=== PATIENT | female | born 1985 | race Hispanic/Latino ===

== ENCOUNTER 2018-04-26 08:13 | Emergency (ER) | payer SELFPAY ==
[2018-04-26 08:26] VITALS: BP 115/76
[2018-04-26 09:04] LABS: Basophils # (Auto) 0.1 K/mm3 (0.0-0.1); Basophils % (Auto) 0.9 % (0.0-1.8); Eosinophils # (Auto) 0.2 K/mm3 (0.0-0.4); Hemoglobin 12.4 gm/dl (10.1-14.3); Lymphocytes # (Auto) 2.6 K/mm3 (1.2-5.4); Lymphocytes % (Auto) 34.8 % (13.4-35.0); Mean Corpuscular HGB Conc 33 % (30-34); Mean Corpuscular Hemoglobin 28 pg (28-32); Mean Corpuscular Volume 83 fl (79-97); Monocytes # (Auto) 0.3 K/mm3 (0.0-0.8); Monocytes % (Auto) 3.8 % (0.0-7.3); Platelet Count 369 K/mm3 (140-440); Red Blood Count 4.44 M/mm3 (3.65-5.03); Red Cell Distribution Width 16.1 % (13.2-15.2)
--- NOTE | 2018-04-26 09:10 | Emergency Department Report ---
<WHITNEYERIN ENAMORADO Janina - Last Filed: 04/26/18 09:10> ED Female HPI - General Chief complaint: Vaginal Bleeding Stated complaint: HURTING ALL OVER Time Seen by Provider: 04/26/18 08:39 Source: patient Mode of arrival: Ambulatory Limitations: No Limitations - Related Data Previous Rx's Medication Instructions Recorded Last Taken Type Ibuprofen [Motrin 600 MG tab] 600 mg PO Q8H PRN #30 tablet 06/23/14 Unknown Rx Ondansetron [Zofran] 4 mg PO Q6HR PRN #15 tablet 06/23/14 Unknown Rx Sulfamethoxazole/Trimethoprim 1 each PO Q12H #6 tablet 06/23/14 Unknown Rx [Bactrim Ds] Nitrofurantoin Kershaw/M-Cryst 100 mg PO Q12HR #20 capsule 12/04/14 Unknown Rx [Macrobid] Ondansetron [Zofran Odt] 4 mg PO Q8HR PRN #8 tab.rapdis 12/04/14 Unknown Rx Vit-Fe Fumar-FA [ 1 each PO QDAY #30 tablet 12/04/14 Unknown Rx Vitamin] metroNIDAZOLE [Metrocream 0.75%] 1 applicatio TP BID #14 day 12/04/14 Unknown Rx medroxyPROGESTERone ACETATE 5 mg PO QDAY #7 tablet 04/26/18 Unknown Rx [Provera] Allergies Allergy/AdvReac Type Severity Reaction Status Date / Time No Known Allergies Allergy Unverified 06/23/14 15:00 ED Review of Systems ROS: Stated complaint: HURTING ALL OVER Other details as noted in HPI ED Past Medical Hx - Past Medical History Previous Medical History?: No - Surgical History Past Surgical History?: No - Social History Smoking Status: Current Every Day Smoker Substance Use Type: Marijuana - Medications Home Medications: Home Medications Medication Instructions Recorded Confirmed Last Taken Type Ibuprofen [Motrin 600 MG tab] 600 mg PO Q8H PRN #30 tablet 06/23/14 Unknown Rx Ondansetron [Zofran] 4 mg PO Q6HR PRN #15 tablet 06/23/14 Unknown Rx Sulfamethoxazole/Trimethoprim 1 each PO Q12H #6 tablet 06/23/14 Unknown Rx [Bactrim Ds] Nitrofurantoin Kershaw/M-Cryst 100 mg PO Q12HR #20 capsule 12/04/14 Unknown Rx [Macrobid] Ondansetron [Zofran Odt] 4 mg PO Q8HR PRN #8 tab.rapdis 12/04/14 Unknown Rx Vit-Fe Fumar-FA [ 1 each PO QDAY #30 tablet 12/04/14 Unknown Rx Vitamin] metroNIDAZOLE [Metrocream 0.75%] 1 applicatio TP BID #14 day 12/04/14 Unknown Rx medroxyPROGESTERone ACETATE 5 mg PO QDAY #7 tablet 04/26/18 Unknown Rx [Provera] ED Physical Exam - General Limitations: No Limitations ED Course Vital Signs 04/26/18 08:22 Temperature 98.9 F Pulse Rate 89 Respiratory 18 Rate Blood Pressure 115/76 O2 Sat by Pulse 99 Oximetry ED Medical Decision Making - Lab Data Result diagrams: 04/26/18 08:53 Critical care attestation.: If time is entered above; I have spent that time in minutes in the direct care of this critically ill patient, excluding procedure time. ED Disposition Clinical Impression: DUB (dysfunctional uterine bleeding) Disposition: DC-01 TO HOME OR SELFCARE Condition: Stable Instructions: Dysfunctional Uterine Bleeding (ED) Prescriptions: medroxyPROGESTERone ACETATE [Provera] 5 mg PO QDAY #7 tablet Referrals: PRIMARY CARE, [Primary Care Provider] - 3-5 Days <CHANELL HERRON - Last Filed: 04/26/18 09:26> ED Female HPI - History of Present Illness Initial comments: She is a 33-year-old female who's had 11 days of vaginal bleeding. Patient states she has some very mild dizziness upon standing. Patient states she has some mild suprapubic crampiness as well. Patient is not sure of her status. Patient denies chest pain shortness of breath at this time. Associated Symptoms: denies: vaginal discharge, nausea/vomiting, fever/chills, headaches, loss of appetite, dysuria, hematuria, rash, shortness of breath, syncope, weakness ED Review of Systems Comment: All other systems reviewed and negative ED Physical Exam - General General appearance: alert, in no apparent distress - Head Head exam: Present: atraumatic, normocephalic - Eye Eye exam: Present: normal appearance - ENT ENT exam: Present: mucous membranes moist - Neck Neck exam: Present: normal inspection - Respiratory Respiratory exam: Present: normal lung sounds bilaterally. Absent: respiratory distress - Cardiovascular Cardiovascular Exam: Present: regular rate, normal rhythm. Absent: systolic murmur, diastolic murmur, rubs, gallop - GI/Abdominal GI/Abdominal exam: Present: soft, normal bowel sounds - Extremities Exam Extremities exam: Present: normal inspection - Back Exam Back exam: Present: normal inspection - Neurological Exam Neurological exam: Present: alert, oriented X3 - Psychiatric Psychiatric exam: Present: normal affect, normal mood - Skin Skin exam: Present: warm, dry, intact, normal color. Absent: rash ED Medical Decision Making - Lab Data Result diagrams: 04/26/18 08:53 Lab Results 04/26/18 04/26/18 Range/Units 08:53 08:53 WBC 7.6 (4.5-11.0) K/mm3 RBC 4.44 (3.65-5.03) M/mm3 Hgb 12.4 (10.1-14.3) gm/dl Hct 37.0 (30.3-42.9) % MCV 83 (79-97) fl MCH 28 (28-32) pg MCHC 33 (30-34) % RDW 16.1 H (13.2-15.2) % Plt Count 369 (140-440) K/mm3 Lymph % (Auto) 34.8 (13.4-35.0) % Kershaw % (Auto) 3.8 (0.0-7.3) % Eos % (Auto) 2.0 (0.0-4.3) % Baso % (Auto) 0.9 (0.0-1.8) % Lymph # 2.6 (1.2-5.4) K/mm3 Kershaw # 0.3 (0.0-0.8) K/mm3 Eos # 0.2 (0.0-0.4) K/mm3 Baso # 0.1 (0.0-0.1) K/mm3 Seg Neutrophils % 58.5 (40.0-70.0) % Seg Neutrophils # 4.4 (1.8-7.7) K/mm3 HCG, Qual Negative (Negative) - Medical Decision Making His hemoglobin is within normal limits and the patient also is not . Patient be referred to [facility] and will be started on Provera to slow her bleeding. ED Disposition Is pt being admited?: No Does the pt Need Aspirin: No Time of Disposition: 09:26
== END 2018-04-26 09:37 | disposition home or self-care (01) ==
LOC: ED 08:13
DX: N93.8 Other specified abnormal uterine and vaginal bleeding (principal)
CPT/HCPCS: 36415; 84703; 85025; 99283

== ENCOUNTER 2021-01-20 15:57 | Emergency (ER) | payer SELFPAY | END 2021-01-21 | LOC: ED 15:57 | DX: M79.18 Myalgia, other site (principal); Z53.21 Procedure and treatment not carried out due to patient leaving prior to being seen by health care provider ==